=== PATIENT | female | born 1975 | race Caucasian/White ===

== ENCOUNTER → 2016-06-26 | Outpatient (CLI) | payer OTHER ==
[~2016-06-26] MED LIST: ACP20 PO; ALBU1AER9 INH; ALBUAER2 INH; BUDE0.25 INH; BUDE180I INH; CETI10TA84 PO; CLON0.5T3 PO; FAMO40TA6 PO; FLNIN NAE; IPRASOL4 INH; RABE20TA5 PO; SPRIN/30 INH; TRIH2TAB2 PO; VNTHFA/IN INH
== END | disposition home or self-care (01) ==
LOC: C.LABBC 09:09
PROVIDERS: ATTEND Family Medicine
DX: J02.9 Acute pharyngitis, unspecified (principal)

== ENCOUNTER → 2016-08-06 | Outpatient (CLI) | payer OTHER ==
--- NOTE | 2016-08-06 08:26 | DIAGNOSTIC IMAGING REPORT ---
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 This anterior displaced and does not capture in the open-mouth position. There are secondary arthritic changes involving the mandibular condyle with condylar spurring and subchondral marrow edema. The right meniscus remains anteriorly displaced in the closed mouth position, but again captures in the open-mouth position. IMPRESSION: 1. No significant change from the preceding study 2. Anterior displacement of the right meniscus in the closed mouth position with evidence of capturing in the open-mouth position 3. Markedly irregular meniscus on the left which is anteriorly displaced and does not capture. There are secondary arthritic changes within the mandibular condyle Electronically signed by: Lyle Meier M.D. 08/06/2016 8:24 AM Dictated Date/Time: 08/06/2016 8:02 AM
== END | disposition home or self-care (01) ==
LOC: C.MRI 06:21
PROVIDERS: ATTEND Preventive Medicine Occupational Medicine
DX: M26.609 Unspecified temporomandibular joint disorder, unspecified side (principal)

== ENCOUNTER → 2016-10-09 | Outpatient (CLI) | payer OTHER ==
[2016-10-09 13:31] LABS: BASO % 0.8 %; BASO ABS # 0.04 K/uL (0-0.2); COMPLETE YES; EOS % 1.2 %; HEMATOCRIT 35.8 % (37-47); LYMPH % 28.5 %; LYMPH ABS # 1.42 K/uL (1.2-3.4); MEAN CELL VOLUME 81.4 fL (80-100); MEAN CORPUSCULAR HEMOGLOBIN 25.9 pg (25-34); MEAN CORPUSCULAR HGB CONC 31.8 g/dl (32-36); MEAN PLATELET VOLUME 11.5 fL (7.4-10.4); NEUT % 57.5 %; PLATELET COUNT 256 K/uL (130-400); WHITE BLOOD COUNT 4.98 K/uL (4.8-10.8)
[2016-10-09 14:07] LABS: CALCIUM 8.8 mg/dl (8.5-10.1)
[2016-10-09 14:15] LABS: BLOOD UREA NITROGEN 12 mg/dl (7-18); CARBON DIOXIDE 26 mmol/L (21-32); CHLORIDE 109 mmol/L (98-107); CREATININE 0.78 mg/dl (0.60-1.20); GLUCOSE 91 mg/dl (70-99); POTASSIUM 3.7 mmol/L (3.5-5.1); SODIUM 141 mmol/L (136-145)
== END | disposition home or self-care (01) ==
LOC: C.LABBC 12:09
PROVIDERS: ATTEND Student in an Organized Health Care Education/Training Program
DX: G24.4 Idiopathic orofacial dystonia (principal); G50.0 Trigeminal neuralgia; Z51.81 Encounter for therapeutic drug level monitoring; Z79.899 Other long term (current) drug therapy

== ENCOUNTER → 2016-11-20 | Outpatient (CLI) | payer OTHER ==
[2016-11-20 12:24] LABS: BASO % 0.4 %; BASO ABS # 0.03 K/uL (0-0.2); COMPLETE YES; EOS % 1.2 %; HEMATOCRIT 35.3 % (37-47); IG% 0.1 %; LYMPH ABS # 2.28 K/uL (1.2-3.4); MEAN CELL VOLUME 81.5 fL (80-100); MEAN CORPUSCULAR HEMOGLOBIN 25.9 pg (25-34); MEAN CORPUSCULAR HGB CONC 31.7 g/dl (32-36); MEAN PLATELET VOLUME 11.6 fL (7.4-10.4); MONO % 6.7 %; NEUT % 60.6 %; PLATELET COUNT 307 K/uL (130-400); RED BLOOD COUNT 4.33 M/uL (4.2-5.4); WHITE BLOOD COUNT 7.36 K/uL (4.8-10.8)
[2016-11-20 12:54] LABS: FERRITIN 4.7 ng/ml (8.0-388.0)
== END | disposition home or self-care (01) ==
LOC: C.LAB1850 11:22
PROVIDERS: ATTEND Physician Assistant Medical
DX: D64.9 Anemia, unspecified (principal)

== ENCOUNTER 2016-11-23 12:09 | Emergency (ER) | payer OTHER ==
[~2016-11-23] VITALS: Ht 167.6 cm; Wt 61.3 kg
[~2016-11-23 12:09] MED LIST changes: -BUDE180I INH; -CLON0.5T3 PO; -IPRASOL4 INH; -RABE20TA5 PO; -SPRIN/30 INH; -TRIH2TAB2 PO; -VNTHFA/IN INH
[2016-11-23 12:12] VITALS: TEMP 36.8; Ht 167.6 cm; Wt 61.3 kg
[2016-11-23] MEDS ORDERED: CLON0.5T3 PO (12:36)
[2016-11-23] MEDS ORDERED: VNTHFA/IN INH (12:36)
[2016-11-23] MEDS ORDERED: BUDE180I INH (12:36)
[2016-11-23] MEDS ORDERED: TRIH2TAB2 PO (12:36)
[2016-11-23] MEDS ORDERED: RABE20TA5 PO (12:36)
[2016-11-23] MEDS ORDERED: IPRASOL4 INH (12:36)
[2016-11-23] MEDS ORDERED: SPRIN/30 INH (12:36)
[2016-11-23 12:55] VITALS: O2SAT 100
[2016-11-23 13:07] LABS: BASO % 0.4 %; BASO ABS # 0.03 K/uL (0-0.2); COMPLETE YES; EOS % 1.1 %; HEMATOCRIT 36.4 % (37-47); IG% 0.1 %; LYMPH % 32.2 %; LYMPH ABS # 2.27 K/uL (1.2-3.4); MEAN CELL VOLUME 81.4 fL (80-100); MEAN CORPUSCULAR HEMOGLOBIN 26.8 pg (25-34); MEAN PLATELET VOLUME 11.7 fL (7.4-10.4); MONO % 9.8 %; NEUT % 56.4 %; PLATELET COUNT 251 K/uL (130-400); RED BLOOD COUNT 4.47 M/uL (4.2-5.4); WHITE BLOOD COUNT 7.06 K/uL (4.8-10.8)
[2016-11-23 13:29] LABS: BUN/CREATININE RATIO 10.8 (10-20); CALCIUM 8.8 mg/dl (8.5-10.1); CREATININE 0.83 mg/dl (0.60-1.20); POTASSIUM 3.8 mmol/L (3.5-5.1)
[2016-11-23 13:32] LABS: ALB/GLOB RATIO 1.1 (0.9-2)
[2016-11-23] MEDS ORDERED: SODIUM CHLORIDE 0.9% 1000ML 1,000 ML IV ONE (13:45)
--- NOTE | 2016-11-23 13:51 | EMERGENCY ROOM VISIT NOTE ---
History First contact with patient: 13:21 Chief Complaint: ILLNESS Stated Complaint: ANEMIA-LEG CRAMPS, DIZZY, HEART PALPITATIONS History of Present Illness The patient is a 41 year old female who presents to the Emergency Room with complaints of feeling lightheaded and very fatigued over the last few weeks. The patient reports having blood work earlier this week. She was told by her primary care physician that she was anemic. They recommended that she be evaluated by a geophysical laboratory chief for possible iron transfusions. The patient has had iron transfusions in the past. The last one was in 2011. The patient does admit to having fairly heavy menses. She is also been experiencing some dyspnea on exertion. She denies any pain in her chest. She denies any abdominal pain. She has been intermittently nauseated, but blames that on her other associated symptoms. She denies any changes in bowel movements. Review of Systems 10 system review performed and negative unless noted in HPI or below Past Medical/Surgical History Asthma Family History Diabetes Coronary artery disease Social History Smoking Status: Never Smoker Alcohol Use: none Marital Status: Occupation Status: employed Current/Historical Medications Scheduled Budesonide (Inhalation) (Pulmicort Flexhaler), 1 PUFFS INH DAILY Cetirizine (Zyrtec), 10 MG PO DAILY Clonazepam (Klonopin), 0.5 MG PO HS Rabeprazole Sodium (Aciphex), 20 MG PO DAILY Tiotropium Moncure (Spiriva Handihaler), 1 CAP INH DAILY Trihexyphenidyl Hcl (Artane), 0.5 TAB PO BID Scheduled PRN Albuterol Hfa (Ventolin Hfa), 1-2 PUFFS INH Q6H PRN for Shortness of Breath Ipratropium-Albuterol (Duoneb), 1 TREATMENT INH Q4 PRN for SOB/Wheezing Allergies Coded Allergies: Sulfamethoxazole w/Trimethoprim (Unverified Allergy, Mild, OTHER, 11/23/16) Acetaminophen (Verified Allergy, Unknown, 11/23/16) Cephalosporins (Verified Allergy, Unknown, CEFADROXIL, 11/23/16) Ragweed (Unverified Allergy, Unknown, unknown, 11/23/16) Epinephrine (Unverified Adverse Reaction, Unknown, heart races, 11/23/16) Uncoded Allergies: DURACEF (Allergy, Mild, OTHER, 01/01/10) XOPENOX (Allergy, Unknown, OTHER, 03/28/15) Physical Exam Vital Signs Date Time Temp Pulse Resp B/P (MAP) Pulse Ox O2 Delivery O2 Flow Rate FiO2 11/23/16 16:52 120/89 11/23/16 16:10 72 18 112/77 100 Room Air 11/23/16 14:00 74 18 111/82 100 Room Air 11/23/16 13:58 66 18 109/76 100 Room Air 79 109/80 74 111/82 11/23/16 12:57 75 11/23/16 12:55 100 Room Air 11/23/16 12:12 36.8 90 18 117/71 100 Room Air Physical Exam VITALS: Vitals are noted on the nurse's note and reviewed by myself. Vital signs stable. GENERAL: 41-year-old female, mildly anxious in appearance,nondiaphoretic, well- developed well-nourished. SKIN: The skin was without rashes, erythema, edema, or bruising. HEAD: Normocephalic atraumatic. EYES Conjunctivae without injection, sclerae without icterus. Extraocular movements intact. MOUTH: Mucous membranes slightly dry. NECK: Supple without nuchal rigidity. No JVD. HEART: Regular rate and rhythm without murmurs gallops or rubs. LUNGS: Clear to auscultation bilaterally without wheezes, rales or rhonchi. No accessory muscle use. ABDOMEN: Positive bowel sounds x 4.Soft, nontender, without organomegaly. No guarding or rebound tenderness. MUSCULOSKELETAL: No muscle atrophy, erythema, or edema noted. No tenderness to palpation.. Strength 5/5 throughout. NEURO: Patient was alert and oriented to person place and time. Normal sensation to touch. No focal neurological deficits. Medical Decision & Procedures Laboratory Results 11/23/16 12:55 Red Blood Count 4.47, Mean Corpuscular Volume 81.4, Mean Corpuscular Hemoglobin 26.8, Mean Corpuscular Hemoglobin Concent 33.0, Mean Platelet Volume 11.7, Neutrophils (%) (Auto) 56.4, Lymphocytes (%) (Auto) 32.2, Monocytes (%) (Auto) 9.8, Eosinophils (%) (Auto) 1.1, Basophils (%) (Auto) 0.4, Neutrophils # (Auto) 3.98, Lymphocytes # (Auto) 2.27, Monocytes # (Auto) 0.69, Eosinophils # (Auto) 0.08, Basophils # (Auto) 0.03 11/23/16 12:55 Test 11/23/16 12:55 11/23/16 13:15 White Blood Count 7.06 K/uL (4.8-10.8) Red Blood Count 4.47 M/uL (4.2-5.4) Hemoglobin 12.0 g/dL (12.0-16.0) Hematocrit 36.4 % (37-47) Mean Corpuscular Volume 81.4 fL (80-100) Mean Corpuscular Hemoglobin 26.8 pg (25-34) Mean Corpuscular Hemoglobin Concent 33.0 g/dl (32-36) Platelet Count 251 K/uL (130-400) Mean Platelet Volume 11.7 fL (7.4-10.4) Neutrophils (%) (Auto) 56.4 % Lymphocytes (%) (Auto) 32.2 % Monocytes (%) (Auto) 9.8 % Eosinophils (%) (Auto) 1.1 % Basophils (%) (Auto) 0.4 % Neutrophils # (Auto) 3.98 K/uL (1.4-6.5) Lymphocytes # (Auto) 2.27 K/uL (1.2-3.4) Monocytes # (Auto) 0.69 K/uL (0.11-0.59) Eosinophils # (Auto) 0.08 K/uL (0-0.5) Basophils # (Auto) 0.03 K/uL (0-0.2) RDW Standard Deviation 51.7 fL (36.4-46.3) RDW Coefficient of Variation 17.4 % (11.5-14.5) Immature Granulocyte % (Auto) 0.1 % Immature Granulocyte # (Auto) 0.01 K/uL (0.00-0.02) D-Dimer 470 ug/L FEU (0-500) Anion Gap 6.0 mmol/L (3-11) Est Creatinine Clear Calc Drug Dose 84.3 ml/min Estimated GFR () 102.2 Estimated GFR (Non- 88.2 BUN/Creatinine Ratio 10.8 (10-20) Calcium Level 8.8 mg/dl (8.5-10.1) Magnesium Level 2.2 mg/dl (1.8-2.4) Total Bilirubin 0.2 mg/dl (0.2-1) Aspartate Amino Transf (AST/SGOT) 11 U/L (15-37) Alanine Aminotransferase (ALT/SGPT) 18 U/L (12-78) Alkaline Phosphatase 88 U/L (45-117) Total Protein 7.2 gm/dl (6.4-8.2) Albumin 3.7 gm/dl (3.4-5.0) Globulin 3.5 gm/dl (2.5-4.0) Albumin/Globulin Ratio 1.1 (0.9-2) Thyroid Stimulating Hormone (TSH) 1.400 uIu/ml (0.300-4.500) Urine Color YELLOW Urine Appearance CLEAR (CLEAR) Urine pH 8.5 (4.5-7.5) Urine Specific Sidman 1.011 (1.000-1.030) Urine Protein NEG (NEG) Urine Glucose (UA) NEG (NEG) Urine Ketones NEG (NEG) Urine Occult Blood NEG (NEG) Urine Nitrite NEG (NEG) Urine Bilirubin NEG (NEG) Urine Urobilinogen NEG (NEG) Urine Leukocyte Esterase NEG (NEG) Urine WBC (Auto) 0 /hpf (0-5) Urine RBC (Auto) 0-4 /hpf (0-4) Urine Hyaline Casts (Auto) 1-5 /lpf (0-5) Urine Epithelial Cells (Auto) 20-30 /lpf (0-5) Urine Bacteria (Auto) NEG (NEG) Medications Administered Medications (Trade) Dose Ordered Sig/Carmen Route Start Time Stop Time Status Last Admin Dose Admin Sodium Chloride 1,000 ml @ 999 mls/hr Q1H1M ONCE IV 11/23/16 13:45 11/23/16 14:45 DC 11/23/16 13:58 999 MLS/HR ED Course Patient was seen and examined Labs were obtained, and a saline lock was established Vital signs were reviewed. Blood pressure within normal range. The patient was hydrated with 1 L of normal saline Orthostatic vital signs were obtained The patient was reassessed. She was resting comfortably in bed. We discussed the results of her workup. Case management was involved. They attempted to make a follow-up appointment for the patient. The hematology office was already contacted by the patient's primary care physician. I discussed the case with the patient's neurologist, Dr. livingston from [place]. I reviewed discharge instructions the patient. They voiced understanding and had no further questions. Medical Decision Differential diagnosis: Anemia, DVT, pulmonary embolus, cardiac arrhythmia, CVA , malnutrition, dehydration, infectious etiologies such as UTI This patient is a 41-year-old female presented to the emergency department with complaints of lightheadedness, occasionally blacking out, dyspnea with exertion and extreme fatigue. The patient apparently had labs done by her primary care physician's office. She was told that her iron levels were very low and that she needed a transfusion. The patient saw her primary care physician again today who sent a referral to hematology. Today in the emergency department, the patient's H&H is stable. She did not have any signs of dehydration. She was not orthostatic. Her EKG was normal sinus rhythm with no signs of arrhythmia. The patient's d-dimer is within normal limits. Changes of a PE or very slim. The etiology of her complaints is unclear. I do not think that the patient would be symptomatic with a hemoglobin of 12. I did discuss the case with the patient's neurologist. She was started on a new medication for her trigeminal neuralgia. It is possible that she is having side effects from a new medication that was started a few weeks ago. It was recommended by her neurologist that she continue the medication as prescribed until she follows up with her as an outpatient. The patient's vital signs were stable upon discharge. She was instructed to follow-up with her primary care physician in addition to her neurologist. She agrees to return to the emergency department with any new or worsening symptoms. Impression Primary Impression: Fatigue Departure Information Referrals ,Eliseo Finn M.D. (PCP) Patient Instructions My [facility]
[2016-11-23 13:59] LABS: MAGNESIUM 2.2 mg/dl (1.8-2.4)
[2016-11-23 14:31] LABS: THYROID STIMULATING HORMONE 1.4 uIu/ml (0.300-4.500)
[2016-11-23 14:59] LABS: URINE APPEARANCE CLEAR (CLEAR); URINE BILIRUBIN NEG (NEG); URINE COLOR YELLOW; URINE EPITHELIAL CELL AUTO 20-30 /lpf (0-5); URINE NITRITE NEG (NEG); URINE PH 8.5 (4.5-7.5); URINE SPECIFIC GRAVITY 1.011 (1.000-1.030); UROBILINOGEN NEG (NEG); ZZUR CULT IF INDIC CLEAN CATCH NO
[2016-11-23 15:01] LABS: MANUAL MICROSCOPIC REQUIRED? NO; REVIEW REQ? NO
[2016-11-23 16:10] VITALS: PULSE 72; O2SAT 100
[2016-11-23 16:52] VITALS: BP 120/89
== END 2016-11-23 16:52 | disposition home or self-care (01) ==
LOC: C.EDB 12:11 → C.EDA 16:52
DX: R53.83 Other fatigue (principal); D64.9 Anemia, unspecified; G50.0 Trigeminal neuralgia; J45.909 Unspecified asthma, uncomplicated; Z83.3 Family history of diabetes mellitus; Z82.49 Family history of ischemic heart disease and other diseases of the circulatory system; Z79.899 Other long term (current) drug therapy

== ENCOUNTER → 2016-12-11 | Outpatient (CLI) | payer OTHER ==
[~2016-12-11] MED LIST changes: -ACP20 PO; -ALBU1AER9 INH; -ALBUAER2 INH; -BUDE0.25 INH; +BUDE180I INH; +CLON0.5T3 PO; -FAMO40TA6 PO; -FLNIN NAE; +IPRASOL4 INH; +RABE20TA5 PO; +SPRIN/30 INH; +TRIH2TAB2 PO; +VNTHFA/IN INH
--- NOTE | 2016-12-11 14:33 | DIAGNOSTIC IMAGING REPORT ---
RIGHT THIRD TOE 3 VIEWS CLINICAL HISTORY: Third toe pain. FINDINGS: 3 views of the right third toe are obtained. Correlation is made with radiographs of the right foot dated 02/26/2013. The skeletal structures are well mineralized. No fracture is seen. The third metatarsophalangeal and interphalangeal joints are well-maintained. There is soft tissue edema/thickening seen along the plantar aspect of the third toe at the level of the distal phalanx. IMPRESSION: 1. No acute bony abnormality is seen in the right third toe. 2. Soft tissue thickening/edema is present along the plantar aspect of the third toe at the level of the distal phalanx. Clinical correlation will be required. Electronically signed by: Erwin Toro M.D. 12/11/2016 2:31 PM Dictated Date/Time: 12/11/2016 2:30 PM
== END | disposition home or self-care (01) ==
LOC: C.RDSM 12:29
PROVIDERS: ATTEND Physician Assistant
DX: M79.674 Pain in right toe(s) (principal)

== ENCOUNTER → 2017-01-03 | Outpatient (CLI) | payer OTHER ==
[2017-01-03 16:38] LABS: BASO % 0.7 %; BASO ABS # 0.05 K/uL (0-0.2); EOS % 1.7 %; HEMATOCRIT 38.5 % (37-47); IG% 0.1 %; LYMPH % 35.3 %; LYMPH ABS # 2.51 K/uL (1.2-3.4); MEAN CELL VOLUME 86.5 fL (80-100); MEAN CORPUSCULAR HEMOGLOBIN 28.3 pg (25-34); MEAN CORPUSCULAR HGB CONC 32.7 g/dl (32-36); MEAN PLATELET VOLUME 11.8 fL (7.4-10.4); MONO % 5.9 %; NEUT % 56.3 %; PLATELET COUNT 284 K/uL (130-400); RED BLOOD COUNT 4.45 M/uL (4.2-5.4); WHITE BLOOD COUNT 7.11 K/uL (4.8-10.8)
[2017-01-03 17:59] LABS: LYME DISEASE AB IGG NEG (NEG); LYME DISEASE AB IGM NEG (NEG)
[2017-01-03 18:01] LABS: ANISOCYTOSIS PRESENT; COMPLETE YES; ECHINOCYTES 1+; SCHISTOCYTES 1+
[2017-01-08 11:37] LABS: EBV EARLY ANTIGEN AB <9.00 U/ML; EPSTEIN BARR VIR CAPSID IGG <18.00 U/ML
== END | disposition home or self-care (01) ==
LOC: C.LABBC 14:49
PROVIDERS: ATTEND Physician Assistant Medical
DX: J02.9 Acute pharyngitis, unspecified (principal); D64.9 Anemia, unspecified; K21.9 Gastro-esophageal reflux disease without esophagitis

== ENCOUNTER → 2017-02-08 | Outpatient (CLI) | payer OTHER | END | disposition home or self-care (01) | LOC: C.LABSPEC 15:25 | PROVIDERS: ATTEND Physician Assistant | DX: R39.9 Unspecified symptoms and signs involving the genitourinary system (principal) ==

== ENCOUNTER → 2017-06-24 | Outpatient (CLI) | payer OTHER ==
--- NOTE | 2017-06-24 16:46 | DIAGNOSTIC IMAGING REPORT ---
R PELVIS/UNILATERAL HIP 1 VIEW CLINICAL HISTORY: RIGHT HIP PAIN, UNILATERAL GROIN PAIN pain COMPARISON: None. DISCUSSION: The bones and joint spaces appear intact. There is no evidence of fracture, dislocation or bony disease. There is no evidence for soft tissue swelling. IMPRESSION: Negative study. The above report was generated using voice recognition software. It may contain grammatical, syntax or spelling errors. Electronically signed by: Berto Heredia M.D. 06/24/2017 4:44 PM Dictated Date/Time: 06/24/2017 4:43 PM
== END | disposition home or self-care (01) ==
LOC: C.RAD1850 16:07
PROVIDERS: ATTEND Nurse Practitioner Adult Health
DX: M25.551 Pain in right hip (principal); R10.30 Lower abdominal pain, unspecified

== ENCOUNTER → 2017-07-22 | Outpatient (CLI) | payer OTHER ==
[2017-07-22 11:05] LABS: ALBUMIN 3.9 gm/dl (3.4-5.0); ALT/SGPT 17 U/L (12-78); BLOOD UREA NITROGEN 11 mg/dl (7-18); CALCIUM 8.6 mg/dl (8.5-10.1); CARBON DIOXIDE 28 mmol/L (21-32); CHOLESTEROL 140 mg/dl (0-200); CREATININE 0.76 mg/dl (0.60-1.20); GLUCOSE 81 mg/dl (70-99); POTASSIUM 3.5 mmol/L (3.5-5.1); SODIUM 138 mmol/L (136-145)
[2017-07-22 11:15] LABS: ALKALINE PHOSPHATASE 90 U/L (45-117); AST/SGOT 12 U/L (15-37); LDL CHOLESTEROL CALCULATED 76 mg/dl; TOTAL PROTEIN 7.3 gm/dl (6.4-8.2)
== END | disposition home or self-care (01) ==
LOC: C.LABBC 07:33
PROVIDERS: ATTEND Internal Medicine
DX: Z00.00 Encounter for general adult medical examination without abnormal findings (principal); Z13.220 Encounter for screening for lipoid disorders; D64.9 Anemia, unspecified; G50.0 Trigeminal neuralgia; G24.9 Dystonia, unspecified

== ENCOUNTER → 2017-11-30 | Outpatient (CLI) | payer OTHER ==
[~2017-11-30] MED LIST changes: -CLON0.5T3 PO; +CLON0.5T9 PO; +IPRA-64 INH; -IPRASOL4 INH
== END | disposition home or self-care (01) ==
LOC: C.LABSPEC 10:37
PROVIDERS: ATTEND Family Medicine
DX: R39.9 Unspecified symptoms and signs involving the genitourinary system (principal)

== ENCOUNTER → 2017-12-04 | Outpatient (CLI) | payer OTHER ==
--- NOTE | 2017-12-04 17:02 | DIAGNOSTIC IMAGING REPORT ---
KUB HISTORY: Acute abdominal cramping with constipation K59.00 [id number] Abdominal [id number] Abdominal pain COMPARISON: Pelvis and right hip radiographs 06/24/2017. FINDINGS: The bowel gas pattern is non-obstructive. Moderate volume of formed stool is noted about the cecum, ascending, descending colon, distal sigmoid and rectum. Phleboliths about the pelvis. There is no organomegaly. No renal calculi. No ureteral calculi. No pneumoperitoneum or pneumatosis. No fracture. IMPRESSION: 1. Nonobstructive bowel gas pattern. 2. Moderate volume of formed colonic stool suggests constipation. 3. No urolith. Electronically signed by: Robin Beach M.D. 12/04/2017 5:01 PM Dictated Date/Time: 12/04/2017 4:59 PM
[2017-12-04 17:31] LABS: BASO % 0.3 %; BASO ABS # 0.03 K/uL (0-0.2); EOS % 1.9 %; EOS ABS # 0.17 K/uL (0-0.5); HEMATOCRIT 41.3 % (37-47); HEMOGLOBIN 13.9 g/dL (12.0-16.0); IG# 0.03 K/uL (0.00-0.02); LYMPH % 37.4 %; MEAN CELL VOLUME 87.9 fL (80-100); MEAN CORPUSCULAR HEMOGLOBIN 29.6 pg (25-34); MEAN CORPUSCULAR HGB CONC 33.7 g/dl (32-36); MEAN PLATELET VOLUME 11.5 fL (7.4-10.4); MONO % 4.7 %; MONO ABS # 0.43 K/uL (0.11-0.59); NEUT % 55.4 %; NEUT ABS # 5.04 K/uL (1.4-6.5); PLATELET COUNT 258 K/uL (130-400); RED CELL DISTRIBUTION WIDTH CV 13.5 % (11.5-14.5); RED CELL DISTRIBUTION WIDTH SD 43.8 fL (36.4-46.3)
[2017-12-04 17:57] LABS: ALBUMIN 3.8 gm/dl (3.4-5.0); ALKALINE PHOSPHATASE 83 U/L (45-117); ALT/SGPT 16 U/L (12-78); AST/SGOT 10 U/L (15-37); BLOOD UREA NITROGEN 11 mg/dl (7-18); CALCIUM 8.7 mg/dl (8.5-10.1); CARBON DIOXIDE 26 mmol/L (21-32); CREATININE 0.64 mg/dl (0.60-1.20); GLUCOSE 85 mg/dl (70-99); POTASSIUM 3.5 mmol/L (3.5-5.1); SODIUM 140 mmol/L (136-145); TOTAL PROTEIN 7.4 gm/dl (6.4-8.2)
== END | disposition home or self-care (01) ==
LOC: C.RAD1850 16:48
PROVIDERS: ATTEND Nurse Practitioner Adult Health
DX: K59.00 Constipation, unspecified (principal); R10.9 Unspecified abdominal pain

== ENCOUNTER → 2017-12-05 | Outpatient (CLI) | payer OTHER | END | disposition home or self-care (01) | LOC: C.LABBC 10:41 | PROVIDERS: ATTEND Nurse Practitioner Adult Health | DX: R10.9 Unspecified abdominal pain (principal); R50.9 Fever, unspecified ==

== ENCOUNTER → 2017-12-10 | Outpatient (CLI) | payer OTHER | END | disposition home or self-care (01) | LOC: C.LABBC 11:58 | PROVIDERS: ATTEND Internal Medicine | DX: E03.9 Hypothyroidism, unspecified (principal) ==